=== PATIENT | male | born 2005 | race Caucasian/White ===

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

== ENCOUNTER 2024-06-11 14:10 | Emergency (ER) | payer SELFPAY ==
[~2024-06-11] VITALS: Ht 177.8 cm; Wt 70.3 kg
[~2024-06-11 14:10] MED LIST changes: +AMOXICILLIN875 MG PO
[2024-06-11] MEDS ORDERED: ZITHROMAX250 MG PO (14:33)
[2024-06-11] MEDS ORDERED: AZITHROMYCIN 250 MG TAB PO ONE (14:35)
== END 2024-06-11 14:40 | disposition home or self-care (01) ==
LOC: ED 14:10
DX: J02.9 Acute pharyngitis, unspecified (principal); R59.0 Localized enlarged lymph nodes

== ENCOUNTER 2024-07-13 19:38 | Emergency (ER) | payer SELFPAY ==
[~2024-07-13] VITALS: Ht 175.2 cm; Wt 68.0 kg
[~2024-07-13 19:38] MED LIST changes: +ZITHROMAX250 MG PO
== END 2024-07-13 22:13 | disposition left against medical advice (07) ==
LOC: ED 19:38
DX: J02.9 Acute pharyngitis, unspecified (principal); R42 Dizziness and giddiness; R05.9 Cough, unspecified; Z53.21 Procedure and treatment not carried out due to patient leaving prior to being seen by health care provider

== ENCOUNTER 2025-03-22 20:08 | Emergency (ER) | payer SELFPAY ==
[~2025-03-22] VITALS: Ht 177.8 cm; Wt 67.1 kg
[2025-03-22] MEDS ORDERED: PENICILLIN V POTASSIUM 500 MG TAB PO ONE (20:35)
[2025-03-22] MEDS ORDERED: Ondansetron Hydrochloride 4 MG TAB SL ONE (20:35)
[2025-03-22] MEDS ORDERED: Acetaminophen/Hydrocodone 5 MG/325 MG TABLET PO ONE (20:35)
[2025-03-22] MEDS ORDERED: PENICILLIN VK500 MG PO (20:37)
== END 2025-03-22 21:08 | disposition home or self-care (01) ==
LOC: ED 20:08
DX: K02.9 Dental caries, unspecified (principal)